=== PATIENT | female | born 1995 | race Caucasian/White ===

== ENCOUNTER 2021-06-26 17:16 | Inpatient (IN) ==
[2021-06-26 19:01] LABS: Bilirubin,Urine Negative (Negative); Blood,Urine Large (Negative); Clarity,Urine Turbid (Clear); Color,Urine Light-Orange (Yellow); Glucose,Urine (UA) Normal (Normal); Ketones,Urine Negative (Negative); Leukocyte Esterase,Urine Trace (Negative); Mucus,Urine Few per lpf (None-Few); Nitrite,Urine Negative (Negative); PH,Urine 6.5 pH Units (5.0-8.0); Protein,Urine 30 mg/dL (Neg-Trace); RBC,Urine 50-100 per hpf (0-3); Specific Gravity,Urine 1.024 (1.010-1.025); Squamous Epithelial Cell,Urine Moderate per hpf (None-Few); Urobilinogen,Urine Normal (Normal)
[2021-06-26] MEDS ORDERED: 0.9 % Sodium Chloride 1,000 ML IVC ONE (19:01)
[2021-06-26] MEDS ORDERED: Morphine Sulfate 2 MG/ML SYRINGE IVP ONE (19:01)
[2021-06-26 19:55] LABS: Basophils # 0.1 K/mcL (0.0-0.2); Basophils % 0.6 %; Eosinophils # 0.1 K/mcL (0.0-0.6); Eosinophils % 0.4 %; Hematocrit 38.4 % (35.3-44.9); Hemoglobin 12.5 g/dL (11.5-15.4); Immature Granulocytes % 0.2 % (0-4); Lymphocytes # 2.6 K/mcL (0.6-4.6); Lymphocytes % 20.3 %; Mean Corpuscular HGB Conc 32.6 g/dL (31.6-35.5); Mean Corpuscular Hemoglobin 29.5 pg (28.0-33.3); Mean Corpuscular Volume 90.6 fL (83.0-100.0); Mean Platelet Volume 10.6 fL (9.4-12.4); Monocytes % 7.5 %; Neutrophils # 9.3 K/mcL (1.6-8.9); Platelet Count 302 K/mcL (140-400); Red Blood Count 4.24 M/mcL (3.82-4.97); Red Cell Distribution Width 12.9 % (11.5-14.5)
[2021-06-26 20:13] LABS: Alanine Aminotransferase 83 Units/L (7-52); Albumin 4.4 g/dL (3.5-5.7); Albumin/Globulin Ratio 1.5 (1.1-2.2); Alkaline Phosphatase 152 Units/L (34-104); Amylase 35 Units/L (29-103); Aspartate Amino Transferase 149 Units/L (13-39); BUN/Creatinine Ratio 13 (6-26); Bilirubin,Direct 0.3 mg/dL (0.0-0.2); Bilirubin,Indirect 0.5 mg/dL (0.0-1.0); Bilirubin,Total 0.8 mg/dL (0.3-1.0); Blood Urea Nitrogen 11 mg/dL (6-20); Calcium 9.8 mg/dL (8.6-10.3); Carbon Dioxide 25 mEq/L (23-29); Chloride 104 mEq/L (98-107); Globulin 2.9 g/dL (2.4-3.5); Glucose 94 mg/dL (70-105); Lipase 16 Units/L (11-82); Osmolality,Calculated 283 (280-300); Potassium 4.1 mEq/L (3.5-5.1); Sodium 137 mEq/L (136-145); Total Protein 7.3 g/dL (6.4-8.9); Troponin I < 0.03 ng/mL (< 0.04); eGFR For African Americans > 60 (> 60); eGFR For Non-African Americans > 60 (> 60)
[2021-06-26] MEDS ORDERED: Piperacillin/Tazobactam 3.375 GM in 0.9 % Sodium Chloride Mini Bag 100 ML IVPB ONE (21:59)
[2021-06-26] MEDS ORDERED: 0.9 % Sodium Chloride 1,000 ML IVC SCH (22:00)
[2021-06-27] MEDS ORDERED: *HR* HYDROcodone/Acet 5/325 mg TABLET PO PRN (06:50)
[2021-06-27] MEDS ORDERED: Naloxone 0.4 MG/ML INJ IVP PRN (06:50)
[2021-06-27] MEDS ORDERED: Ondansetron 4 MG/2 ML VIAL IVP PRN ×2 (06:50→09:03)
[2021-06-27] MEDS ORDERED: Acetaminophen 325 MG TABLET PO PRN (06:50)
[2021-06-27] MEDS ORDERED: Ibuprofen 400 MG TABLET PO PRN (06:50)
[2021-06-27] MEDS ORDERED: *HR* OxyCODONE Immed Rel 5 MG TABLET PO PRN (06:50)
[2021-06-27] MEDS ORDERED: 0.9 % Sodium Chloride 1,000 ML IVC SCH (06:52)
[2021-06-27] MEDS ORDERED: Piperacillin/Tazobactam 3.375 GM in 0.9 % Sodium Chloride Mini Bag 100 ML IVPB SCH (08:00)
[2021-06-27] MEDS ORDERED: Isovue-300 50ML VIAL ONE (08:36)
[2021-06-27] MEDS ORDERED: *HR* Propofol 200 MG/20 ML VIAL IVP ONE (08:56)
[2021-06-27] MEDS ORDERED: *HR* FentaNYL (PF) 100 MCG/2 ML VIAL ONE (08:56)
[2021-06-27] MEDS ORDERED: *HR* Midazolam HCl 2 MG/2 ML VIAL ONE (08:56)
[2021-06-27] MEDS ORDERED: *HR* Rocuronium Bromide 50 MG/5 ML VIAL ONE (08:59)
[2021-06-27] MEDS ORDERED: Lidocaine -MPF 2% 5 ML VIAL ONE (08:59)
[2021-06-27] MEDS ORDERED: Lidocaine HCL 4 ML Topical Solution (Laryng-O-Jet Kit Sterile Pak) TP ONE (08:59)
[2021-06-27] MEDS ORDERED: *HR* HYDROmorphone PF 0.5 MG/0.5 ML SYRINGE IVP PRN (09:03)
[2021-06-27] MEDS ORDERED: Promethazine 6.25 MG in Water for inj. (sterile) 20 ML IVPB PRN (09:03)
[2021-06-27] MEDS ORDERED: *HR* Meperidine 25 MG/ML SYRINGE IVP PRN (09:03)
[2021-06-27] MEDS ORDERED: Albuterol 2.5 MG/3 ML NEBULIZER IH PRN (09:03)
[2021-06-27] MEDS ORDERED: Ondansetron 4 MG/2 ML VIAL ONE (09:16)
[2021-06-27] MEDS ORDERED: Acetaminophen IV 1,000 MG/100 ML BAG IVPB ONE ×2 (09:30)
[2021-06-27] MEDS ORDERED: Ketorolac 30 MG/ML VIAL ONE (09:31)
[2021-06-27] MEDS ORDERED: Sugammadex Sodium 200 MG/2 ML VIAL IV ONE (09:31)
[2021-06-27] MEDS ORDERED: *HR* HYDROMORPHONE 2 MG/ML VIAL ONE (10:29)
[2021-06-27] MEDS: 0.9 % Sodium Chloride 1,000 ML IVC SCH (12:02)
[2021-06-27] MEDS: Acetaminophen IV 1,000 MG/100 ML BAG IVPB SCH ×2 (15:51→21:30)
[2021-06-27] MEDS: Piperacillin/Tazobactam 3.375 GM in 0.9 % Sodium Chloride Mini Bag 100 ML IVPB SCH ×2 (16:46→23:40)
[2021-06-27] MEDS: Ondansetron 4 MG/2 ML VIAL IVP PRN (19:28)
[2021-06-28] MEDS: 0.9 % Sodium Chloride 1,000 ML IVC SCH ×3 (03:17→20:02)
[2021-06-28] MEDS: Acetaminophen IV 1,000 MG/100 ML BAG IVPB SCH ×2 (03:17→12:04)
[2021-06-28 06:21] LABS: Basophils % 0.1 %; Hematocrit 33.6 % (35.3-44.9); Immature Granulocytes % 0.3 % (0-4); Lymphocytes # 1.6 K/mcL (0.6-4.6); Lymphocytes % 13.5 %; Mean Corpuscular HGB Conc 31.5 g/dL (31.6-35.5); Mean Corpuscular Volume 92.1 fL (83.0-100.0); Monocytes # 0.7 K/mcL (0.0-1.3); Monocytes % 5.6 %; Neutrophils # 9.6 K/mcL (1.6-8.9); Platelet Count 281 K/mcL (140-400); Red Blood Count 3.65 M/mcL (3.82-4.97); Red Cell Distribution Width 12.8 % (11.5-14.5); Segmented Neutrophils % 80.5 %
[2021-06-28 06:23] LABS: Hemoglobin 10.6 g/dL (11.5-15.4)
[2021-06-28 06:29] LABS: BUN/Creatinine Ratio 11 (6-26); Blood Urea Nitrogen 9 mg/dL (6-20); Calcium 8.4 mg/dL (8.6-10.3); Carbon Dioxide 23 mEq/L (23-29); Chloride 106 mEq/L (98-107); Glucose 91 mg/dL (70-105); Osmolality,Calculated 278 (280-300); Potassium 3.9 mEq/L (3.5-5.1); Sodium 135 mEq/L (136-145); eGFR For African Americans > 60 (> 60); eGFR For Non-African Americans > 60 (> 60)
[2021-06-28] MEDS ORDERED: Albuterol 2.5 MG/3 ML NEBULIZER IH PRN (07:39)
[2021-06-28] MEDS ORDERED: Nitroglycerin 0.4 MG TAB.SUBL SL PRN (07:39)
[2021-06-28] MEDS ORDERED: Naloxone 0.4 MG/ML INJ IVP PRN (07:39)
[2021-06-28] MEDS ORDERED: Ondansetron 4 MG/2 ML VIAL IVP PRN (07:39)
[2021-06-28] MEDS ORDERED: Lidocaine -MPF 4% 5 ML AMPUL ONE (07:40)
[2021-06-28] MEDS ORDERED: Lidocaine -MPF 2% 5 ML VIAL ONE (07:45)
[2021-06-28] MEDS ORDERED: *HR* FentaNYL (PF) 100 MCG/2 ML VIAL ONE (07:45)
[2021-06-28] MEDS ORDERED: *HR* Succinylcholine 200 MG/10 ML VIAL IVP ONE (07:45)
[2021-06-28] MEDS ORDERED: *HR* Rocuronium Bromide 50 MG/5 ML VIAL ONE (07:45)
[2021-06-28] MEDS ORDERED: Ondansetron 4 MG/2 ML VIAL ONE (07:45)
[2021-06-28] MEDS ORDERED: *HR* Propofol 200 MG/20 ML VIAL IVP ONE (07:47)
[2021-06-28] MEDS ORDERED: *HR* Midazolam HCl 2 MG/2 ML VIAL ONE (07:47)
[2021-06-28] MEDS ORDERED: *HR* Metoprolol 5 MG/5 ML VIAL IVP ONE (08:21)
[2021-06-28] MEDS ORDERED: *HR* HYDROMORPHONE 2 MG/ML VIAL ONE (08:36)
[2021-06-28] MEDS ORDERED: Indomethacin 50 MG SUPP.RECT RC ONE (08:54)
[2021-06-28 09:46] LABS: Alanine Aminotransferase 150 Units/L (7-52); Albumin 3.6 g/dL (3.5-5.7); Albumin/Globulin Ratio 1.6 (1.1-2.2); Alkaline Phosphatase 187 Units/L (34-104); Aspartate Amino Transferase 133 Units/L (13-39); Bilirubin,Direct 0.2 mg/dL (0.0-0.2); Bilirubin,Indirect 0.4 mg/dL (0.0-1.0); Bilirubin,Total 0.6 mg/dL (0.3-1.0); Globulin 2.2 g/dL (2.4-3.5); Total Protein 5.8 g/dL (6.4-8.9)
[2021-06-28] MEDS: Piperacillin/Tazobactam 3.375 GM in 0.9 % Sodium Chloride Mini Bag 100 ML IVPB SCH ×2 (12:05→18:40)
[2021-06-28] MEDS: Ketorolac 30 MG/ML VIAL IVP SCH ×2 (12:09→18:36)
[2021-06-28] MEDS: Orphenadrine 60 MG/2 ML VIAL IVP PRN (20:04)
[2021-06-29] MEDS: Ketorolac 30 MG/ML VIAL IVP SCH ×4 (00:35→18:38)
[2021-06-29] MEDS: Piperacillin/Tazobactam 3.375 GM in 0.9 % Sodium Chloride Mini Bag 100 ML IVPB SCH ×3 (00:37→16:43)
[2021-06-29] MEDS: 0.9 % Sodium Chloride 1,000 ML IVC SCH ×2 (02:34→11:51)
[2021-06-29] MEDS: *HR* Enoxaparin 40 MG/0.4 ML SYRINGE SQ SCH (05:39)
[2021-06-29 06:36] LABS: Basophils % 0.3 %; Hematocrit 30.8 % (35.3-44.9); Hemoglobin 10.2 g/dL (11.5-15.4); Immature Granulocytes % 0.4 % (0-4); Lymphocytes # 3.5 K/mcL (0.6-4.6); Mean Corpuscular HGB Conc 33.1 g/dL (31.6-35.5); Mean Corpuscular Hemoglobin 29.8 pg (28.0-33.3); Mean Corpuscular Volume 90.1 fL (83.0-100.0); Mean Platelet Volume 11.1 fL (9.4-12.4); Monocytes # 0.9 K/mcL (0.0-1.3); Monocytes % 8.8 %; Neutrophils # 6.1 K/mcL (1.6-8.9); Platelet Count 265 K/mcL (140-400); Red Blood Count 3.42 M/mcL (3.82-4.97); Segmented Neutrophils % 57.5 %; White Blood Count 10.6 K/mcL (4.3-11.1)
[2021-06-29 07:02] LABS: Amylase 89 Units/L (29-103); BUN/Creatinine Ratio 13 (6-26); Blood Urea Nitrogen 13 mg/dL (6-20); Calcium 8.5 mg/dL (8.6-10.3); Carbon Dioxide 24 mEq/L (23-29); Chloride 108 mEq/L (98-107); Glucose 85 mg/dL (70-105); Lipase 212 Units/L (11-82); Magnesium 1.9 mg/dL (1.6-2.6); Osmolality,Calculated 285 (280-300); Phosphorous 2.7 mg/dL (2.7-4.5); Potassium 3.8 mEq/L (3.5-5.1); Sodium 138 mEq/L (136-145); eGFR For African Americans > 60 (> 60); eGFR For Non-African Americans > 60 (> 60)
[2021-06-29] MEDS: Acetaminophen 325 MG TABLET PO PRN (19:07)
[2021-06-29] MEDS: Orphenadrine 60 MG/2 ML VIAL IVP PRN (21:34)
[2021-06-30] MEDS: Ketorolac 30 MG/ML VIAL IVP SCH ×4 (00:16→16:58)
[2021-06-30] MEDS: Piperacillin/Tazobactam 3.375 GM in 0.9 % Sodium Chloride Mini Bag 100 ML IVPB SCH ×3 (00:16→16:24)
[2021-06-30 05:51] LABS: Albumin 3.4 g/dL (3.5-5.7); Albumin/Globulin Ratio 1.4 (1.1-2.2); Bilirubin,Direct 1.2 mg/dL (0.0-0.2); Bilirubin,Indirect 0.6 mg/dL (0.0-1.0); Bilirubin,Total 1.8 mg/dL (0.3-1.0); Globulin 2.4 g/dL (2.4-3.5); Total Protein 5.8 g/dL (6.4-8.9)
[2021-06-30] MEDS: 0.9 % Sodium Chloride 1,000 ML IVC SCH ×2 (06:17→12:19)
[2021-06-30] MEDS: *HR* Enoxaparin 40 MG/0.4 ML SYRINGE SQ SCH (06:18)
[2021-06-30] MEDS: Ondansetron 4 MG/2 ML VIAL IVP PRN ×2 (08:19→14:24)
[2021-07-01] MEDS: Piperacillin/Tazobactam 3.375 GM in 0.9 % Sodium Chloride Mini Bag 100 ML IVPB SCH ×4 (00:06→23:33)
[2021-07-01] MEDS: Ketorolac 30 MG/ML VIAL IVP SCH ×3 (00:07→12:51)
[2021-07-01] MEDS: 0.9 % Sodium Chloride 1,000 ML IVC SCH ×2 (04:59→18:12)
[2021-07-01] MEDS: *HR* Enoxaparin 40 MG/0.4 ML SYRINGE SQ SCH (08:29)
[2021-07-02] MEDS: Ondansetron 4 MG/2 ML VIAL IVP PRN ×2 (00:31→16:52)
[2021-07-02 05:08] LABS: Basophils # 0.1 K/mcL (0.0-0.2); Basophils % 0.7 %; Eosinophils # 0.2 K/mcL (0.0-0.6); Eosinophils % 1.4 %; Immature Granulocytes % 0.3 % (0-4); Lymphocytes # 2.6 K/mcL (0.6-4.6); Lymphocytes % 22.9 %; Mean Corpuscular HGB Conc 33.7 g/dL (31.6-35.5); Mean Corpuscular Hemoglobin 29.4 pg (28.0-33.3); Mean Corpuscular Volume 87.1 fL (83.0-100.0); Mean Platelet Volume 10.6 fL (9.4-12.4); Monocytes # 0.9 K/mcL (0.0-1.3); Monocytes % 7.8 %; Neutrophils # 7.7 K/mcL (1.6-8.9); Platelet Count 297 K/mcL (140-400); Red Blood Count 4.02 M/mcL (3.82-4.97); Red Cell Distribution Width 12.6 % (11.5-14.5); Segmented Neutrophils % 66.9 %; White Blood Count 11.5 K/mcL (4.3-11.1)
[2021-07-02 05:10] LABS: Hemoglobin 11.8 g/dL (11.5-15.4)
[2021-07-02 05:23] LABS: Alanine Aminotransferase 107 Units/L (7-52); Albumin 3.9 g/dL (3.5-5.7); Albumin/Globulin Ratio 1.6 (1.1-2.2); Alkaline Phosphatase 309 Units/L (34-104); Amylase 26 Units/L (29-103); Aspartate Amino Transferase 33 Units/L (13-39); BUN/Creatinine Ratio 12 (6-26); Bilirubin,Direct 0.8 mg/dL (0.0-0.2); Bilirubin,Indirect 0.7 mg/dL (0.0-1.0); Bilirubin,Total 1.5 mg/dL (0.3-1.0); Blood Urea Nitrogen 10 mg/dL (6-20); Calcium 9.2 mg/dL (8.6-10.3); Carbon Dioxide 23 mEq/L (23-29); Chloride 102 mEq/L (98-107); Globulin 2.4 g/dL (2.4-3.5); Glucose 75 mg/dL (70-105); Lipase 29 Units/L (11-82); Magnesium 1.8 mg/dL (1.6-2.6); Osmolality,Calculated 282 (280-300); Phosphorous 3.7 mg/dL (2.7-4.5); Potassium 3.5 mEq/L (3.5-5.1); Sodium 137 mEq/L (136-145); Total Protein 6.3 g/dL (6.4-8.9); eGFR For African Americans > 60 (> 60); eGFR For Non-African Americans > 60 (> 60)
[2021-07-02] MEDS: *HR* Enoxaparin 40 MG/0.4 ML SYRINGE SQ SCH (06:41)
[2021-07-02] MEDS: 0.9 % Sodium Chloride 1,000 ML IVC SCH ×2 (06:41→16:51)
[2021-07-02] MEDS: Piperacillin/Tazobactam 3.375 GM in 0.9 % Sodium Chloride Mini Bag 100 ML IVPB SCH ×3 (09:06→23:43)
[2021-07-02] MEDS ORDERED: *HR* FentaNYL (PF) 100 MCG/2 ML VIAL ONE ×2 (11:47→14:12)
[2021-07-02] MEDS ORDERED: *HR* Midazolam HCl 2 MG/2 ML VIAL ONE (11:47)
[2021-07-02] MEDS ORDERED: *HR* Propofol 200 MG/20 ML VIAL IVP ONE (11:48)
[2021-07-02] MEDS ORDERED: Lidocaine -MPF 2% 5 ML VIAL ONE (11:49)
[2021-07-02] MEDS ORDERED: *HR* Succinylcholine 200 MG/10 ML VIAL IVP ONE (11:49)
[2021-07-02] MEDS ORDERED: *HR* Rocuronium Bromide 50 MG/5 ML VIAL ONE (11:49)
[2021-07-02] MEDS ORDERED: Ondansetron 4 MG/2 ML VIAL ONE (11:54)
[2021-07-02] MEDS ORDERED: Lidocaine -MPF 4% 5 ML AMPUL ONE (11:55)
[2021-07-02] MEDS ORDERED: Indomethacin 50 MG SUPP.RECT RC ONE (15:39)
[2021-07-02] MEDS ORDERED: Ringers Solution, Lactated 1,000 ML ONE (16:16)
[2021-07-02] MEDS: Acetaminophen 325 MG TABLET PO PRN (16:52)
[2021-07-03] MEDS: 0.9 % Sodium Chloride 1,000 ML IVC SCH ×3 (03:50→23:36)
[2021-07-03 05:17] LABS: Basophils % 0.2 %; Eosinophils % 0.1 %; Hematocrit 35.3 % (35.3-44.9); Hemoglobin 11.9 g/dL (11.5-15.4); Immature Granulocytes % 0.4 % (0-4); Lymphocytes # 2.2 K/mcL (0.6-4.6); Lymphocytes % 15.4 %; Mean Corpuscular HGB Conc 33.7 g/dL (31.6-35.5); Mean Corpuscular Hemoglobin 29.8 pg (28.0-33.3); Mean Corpuscular Volume 88.5 fL (83.0-100.0); Mean Platelet Volume 10.8 fL (9.4-12.4); Monocytes # 0.8 K/mcL (0.0-1.3); Monocytes % 5.7 %; Neutrophils # 11.1 K/mcL (1.6-8.9); Platelet Count 293 K/mcL (140-400); Red Blood Count 3.99 M/mcL (3.82-4.97); Red Cell Distribution Width 13.1 % (11.5-14.5); Segmented Neutrophils % 78.2 %; White Blood Count 14.2 K/mcL (4.3-11.1)
[2021-07-03] MEDS: *HR* Enoxaparin 40 MG/0.4 ML SYRINGE SQ SCH (05:31)
[2021-07-03 06:11] LABS: Alanine Aminotransferase 91 Units/L (7-52); Albumin 3.6 g/dL (3.5-5.7); Albumin/Globulin Ratio 1.4 (1.1-2.2); Alkaline Phosphatase 347 Units/L (34-104); Aspartate Amino Transferase 39 Units/L (13-39); BUN/Creatinine Ratio 13 (6-26); Bilirubin,Total 2.3 mg/dL (0.3-1.0); Blood Urea Nitrogen 10 mg/dL (6-20); Calcium 9.1 mg/dL (8.6-10.3); Carbon Dioxide 22 mEq/L (23-29); Chloride 104 mEq/L (98-107); Globulin 2.5 g/dL (2.4-3.5); Glucose 86 mg/dL (70-105); Lipase 1490 Units/L (11-82); Osmolality,Calculated 280 (280-300); Potassium 3.7 mEq/L (3.5-5.1); Sodium 136 mEq/L (136-145); Total Protein 6.1 g/dL (6.4-8.9); eGFR For African Americans > 60 (> 60); eGFR For Non-African Americans > 60 (> 60)
[2021-07-03] MEDS: Piperacillin/Tazobactam 3.375 GM in 0.9 % Sodium Chloride Mini Bag 100 ML IVPB SCH ×3 (09:06→23:35)
[2021-07-03] MEDS ORDERED: 0.9 % Sodium Chloride 500 ML ONE ×2 (10:08→10:49)
[2021-07-03] MEDS ORDERED: Lidocaine/EPI 1:100k 1% 50 ML VIAL ONE (10:08)
[2021-07-03] MEDS ORDERED: Heparin 1,000 UNITS/500 mL 500 ML ONE (10:08)
[2021-07-03] MEDS ORDERED: *HR* FentaNYL (PF) 100 MCG/2 ML VIAL ONE ×3 (10:48→11:31)
[2021-07-03] MEDS ORDERED: *HR* Midazolam HCl 2 MG/2 ML VIAL ONE ×3 (10:49→11:31)
[2021-07-03] MEDS: *HR* Midazolam HCl 2 MG/2 ML VIAL IVP ONE ×2 (11:02→11:06)
[2021-07-03] MEDS: *HR* FentaNYL (PF) 100 MCG/2 ML VIAL IVP ONE ×2 (11:02→11:06)
[2021-07-03] MEDS ORDERED: *HR* FentaNYL (PF) 100 MCG/2 ML VIAL IVP ONE ×3 (11:12→11:47)
[2021-07-03] MEDS ORDERED: *HR* Midazolam HCl 2 MG/2 ML VIAL IVP ONE ×3 (11:14→11:49)
[2021-07-03] MEDS ORDERED: Morphine Sulfate 2 MG/ML SYRINGE IVP ONE (12:56)
[2021-07-03] MEDS: Ondansetron 4 MG/2 ML VIAL IVP PRN ×2 (13:10→23:11)
[2021-07-03] MEDS: Morphine Sulfate 2 MG/ML SYRINGE IVP PRN (23:33)
[2021-07-04 02:48] LABS: Basophils # 0.1 K/mcL (0.0-0.2); Basophils % 0.6 %; Eosinophils # 0.1 K/mcL (0.0-0.6); Eosinophils % 0.4 %; Hematocrit 33.4 % (35.3-44.9); Hemoglobin 10.9 g/dL (11.5-15.4); Immature Granulocytes % 0.2 % (0-4); Lymphocytes % 16.7 %; Mean Corpuscular HGB Conc 32.6 g/dL (31.6-35.5); Mean Corpuscular Hemoglobin 29.4 pg (28.0-33.3); Mean Platelet Volume 11.3 fL (9.4-12.4); Monocytes # 0.9 K/mcL (0.0-1.3); Monocytes % 7.3 %; Neutrophils # 9.1 K/mcL (1.6-8.9); Platelet Count 281 K/mcL (140-400); Red Blood Count 3.71 M/mcL (3.82-4.97); Red Cell Distribution Width 13.7 % (11.5-14.5); Segmented Neutrophils % 74.8 %; White Blood Count 12.2 K/mcL (4.3-11.1)
[2021-07-04 02:49] LABS: Alanine Aminotransferase 87 Units/L (7-52); Albumin 3.6 g/dL (3.5-5.7); Albumin/Globulin Ratio 1.4 (1.1-2.2); Alkaline Phosphatase 299 Units/L (34-104); Aspartate Amino Transferase 37 Units/L (13-39); Bilirubin,Direct 0.2 mg/dL (0.0-0.2); Bilirubin,Indirect 0.7 mg/dL (0.0-1.0); Bilirubin,Total 0.9 mg/dL (0.3-1.0); Blood Urea Nitrogen 9 mg/dL (6-20); Carbon Dioxide 22 mEq/L (23-29); Chloride 105 mEq/L (98-107); Globulin 2.5 g/dL (2.4-3.5); Glucose 76 mg/dL (70-105); Lipase 147 Units/L (11-82); Osmolality,Calculated 283 (280-300); Potassium 3.5 mEq/L (3.5-5.1); Sodium 138 mEq/L (136-145); Total Protein 6.1 g/dL (6.4-8.9)
[2021-07-04] MEDS: Morphine Sulfate 2 MG/ML SYRINGE IVP PRN (03:35)
[2021-07-04] MEDS: Acetaminophen IV 1,000 MG/100 ML BAG IVPB SCH ×4 (03:36→17:33)
[2021-07-04 03:37] LABS: BUN/Creatinine Ratio 13 (6-26); eGFR For African Americans > 60 (> 60); eGFR For Non-African Americans > 60 (> 60)
[2021-07-04] MEDS: 0.9 % Sodium Chloride 1,000 ML IVC SCH ×5 (03:57→20:44)
[2021-07-04] MEDS: *HR* Enoxaparin 40 MG/0.4 ML SYRINGE SQ SCH (06:23)
[2021-07-04] MEDS: Piperacillin/Tazobactam 3.375 GM in 0.9 % Sodium Chloride Mini Bag 100 ML IVPB SCH ×2 (08:03→16:06)
[2021-07-04] MEDS ORDERED: Ondansetron 4 MG/2 ML VIAL IVP PRN (12:38)
[2021-07-04] MEDS ORDERED: *HR* HYDROmorphone PF 0.5 MG/0.5 ML SYRINGE IVP PRN (12:38)
[2021-07-04] MEDS ORDERED: *HR* OxyCODONE Immed Rel 5 MG TABLET PO PRN (12:38)
[2021-07-04] MEDS ORDERED: Promethazine 6.25 MG in Water for inj. (sterile) 20 ML IVPB PRN (12:38)
[2021-07-04] MEDS ORDERED: Lidocaine -MPF 2% 5 ML VIAL ONE (12:57)
[2021-07-04] MEDS ORDERED: *HR* Succinylcholine 200 MG/10 ML VIAL IVP ONE (12:57)
[2021-07-04] MEDS ORDERED: *HR* Propofol 200 MG/20 ML VIAL IVP ONE (12:57)
[2021-07-04] MEDS ORDERED: *HR* FentaNYL (PF) 100 MCG/2 ML VIAL ONE ×2 (12:57→13:32)
[2021-07-04] MEDS ORDERED: Ondansetron 4 MG/2 ML VIAL ONE (12:57)
[2021-07-04] MEDS ORDERED: Indomethacin 50 MG SUPP.RECT RC ONE (14:14)
[2021-07-04] MEDS ORDERED: *HR* HYDROMORPHONE 2 MG/ML VIAL ONE (14:28)
[2021-07-05] MEDS: Acetaminophen IV 1,000 MG/100 ML BAG IVPB SCH ×2 (00:13→05:11)
[2021-07-05] MEDS: Piperacillin/Tazobactam 3.375 GM in 0.9 % Sodium Chloride Mini Bag 100 ML IVPB SCH ×2 (00:25→08:03)
[2021-07-05] MEDS: *HR* Enoxaparin 40 MG/0.4 ML SYRINGE SQ SCH (05:12)
[2021-07-05 07:25] VITALS: BP 137/72; PULSE 58; TEMP 98.4; O2SAT 95
[2021-07-05 08:04] LABS: Basophils % 0.4 %; Eosinophils % 0.2 %; Hematocrit 32.1 % (35.3-44.9); Hemoglobin 10.7 g/dL (11.5-15.4); Immature Granulocytes % 0.4 % (0-4); Lymphocytes # 2.3 K/mcL (0.6-4.6); Lymphocytes % 20.1 %; Mean Corpuscular HGB Conc 33.3 g/dL (31.6-35.5); Mean Corpuscular Hemoglobin 29.7 pg (28.0-33.3); Mean Corpuscular Volume 89.2 fL (83.0-100.0); Mean Platelet Volume 11.2 fL (9.4-12.4); Monocytes # 0.9 K/mcL (0.0-1.3); Monocytes % 7.8 %; Platelet Count 261 K/mcL (140-400); Red Cell Distribution Width 13.5 % (11.5-14.5); Segmented Neutrophils % 71.1 %; White Blood Count 11.3 K/mcL (4.3-11.1)
[2021-07-05] MEDS: 0.9 % Sodium Chloride 1,000 ML IVC SCH (08:04)
[2021-07-05 08:06] LABS: Alanine Aminotransferase 71 Units/L (7-52); Albumin 3.7 g/dL (3.5-5.7); Albumin/Globulin Ratio 1.5 (1.1-2.2); Alkaline Phosphatase 254 Units/L (34-104); Aspartate Amino Transferase 27 Units/L (13-39); BUN/Creatinine Ratio 12 (6-26); Bilirubin,Direct 0.3 mg/dL (0.0-0.2); Bilirubin,Indirect 0.5 mg/dL (0.0-1.0); Bilirubin,Total 0.8 mg/dL (0.3-1.0); Blood Urea Nitrogen 8 mg/dL (6-20); Calcium 9.1 mg/dL (8.6-10.3); Carbon Dioxide 25 mEq/L (23-29); Chloride 101 mEq/L (98-107); Globulin 2.5 g/dL (2.4-3.5); Glucose 78 mg/dL (70-105); Lipase 72 Units/L (11-82); Osmolality,Calculated 281 (280-300); Potassium 3.5 mEq/L (3.5-5.1); Sodium 137 mEq/L (136-145); Total Protein 6.2 g/dL (6.4-8.9); eGFR For African Americans > 60 (> 60); eGFR For Non-African Americans > 60 (> 60)
[2021-07-05] MEDS ORDERED: *HR* OxyCODONE/APAP 5/325 TABLET PO PRN (08:58)
[2021-07-05] MEDS ORDERED: Ibuprofen 800 MG TABLET PO ONE (08:58)
== END 2021-07-05 12:21 | disposition home or self-care (01) | DRG 417 ==
LOC: EMEROOARM 17:16 → 3ANU 17:16
PROVIDERS: ADMIT Surgery; ATTEND Surgery